=== PATIENT | female | born 1955 | race Two or more races ===

== ENCOUNTER 2021-12-14 13:36 | Emergency (ER) | payer MEDICAID ==
[~2021-12-14] VITALS: Ht 152.4 cm; Wt 72.6 kg
--- NOTE | 2021-12-14 13:36 | NUR ---
BIBS THIS 66YO FEMALE PATIENT WITH CC OF BODY WEAKNESS, BILATERAL FEET PAIN, SWELLING OF LEFT FOOT AND REDNESS ON GREAT TOE PHALANX X5 DAYS. PLACED PATIENT IN BED. VITALS CHECKED.
--- NOTE | 2021-12-14 14:43 | NUR ---
DR OTTO AT BEDSIDE
[2021-12-14] MEDS ORDERED: KETOROLAC TROMETHAMINE INJ 30 MG/ML VIAL IV ONE (15:00)
[2021-12-14] MEDS ORDERED: IV NS 0.9% 1,000 ML BAG IV ONE (15:00)
[2021-12-14] MEDS ORDERED: ONDANSETRON HCL/PF 4 MG/2 ML VIAL IVP ONE (15:00)
[2021-12-14 15:19] LABS: BASOPHILS # (AUTO) 0.1 K/uL (0.0-0.2); BASOPHILS % (AUTO) 0.7 % (0.0-2.0); HEMATOCRIT 36 % (33-45); HEMOGLOBIN 12.3 g/dL (11.5-14.8); LYMPHOCYTES # (AUTO) 2.3 K/uL (0.8-4.8); LYMPHOCYTES % (AUTO) 18.3 % (20.0-44.0); MEAN CORPUSCULAR HGB CONC 34 g/dl (31.0-36.0); MEAN CORPUSCULAR VOLUME 86 fL (82-100); MONOCYTES # (AUTO) 1.7 K/uL (0.1-1.30); MONOCYTES % (AUTO) 13.4 % (2.0-12.0); NEUTROPHILS # (AUTO) 8.5 K/uL (1.8-8.9); NEUTROPHILS % (AUTO) 67.6 % (43.0-81.0); PLATELET COUNT (AUTO) 354 K/uL (150-450); RED BLOOD CELL COUNT(AUTO) 4.22 MIL/uL (4.0-5.2); WHITE BLOOD COUNT (AUTO) 12.6 K/uL (4.3-11.0)
[2021-12-14] MEDS ORDERED: KETOROLAC TROMETHAMINE INJ 30 MG/ML VIAL ONE (15:19)
[2021-12-14] MEDS ORDERED: ONDANSETRON HCL/PF 4 MG/2 ML VIAL ONE (15:19)
[2021-12-14 15:28] LABS: CARBON DIOXIDE 29 mmol/L (21-32); CHLORIDE 103 mmol/L (98-107); CREATININE 0.8 mg/dL (0.6-1.3); GLUCOSE 136 mg/dL (74-106); POTASSIUM 2.9 mmol/L (3.5-5.1); SODIUM SERUM 143 mmol/L (136-145); UREA NITROGEN, BLOOD 9 mg/dL (7-18)
[2021-12-14 15:34] LABS: ALANINE AMINOTRANSFERASE 27 U/L (12-78); ALKALINE PHOSPHATASE 121 U/L (46-116); ASPARTATE AMINOTRANSFERASE 16 U/L (15-37); BILIRUBIN,DIRECT 0.2 mg/dL (0.0-0.2); BILIRUBIN,TOTAL 1.1 mg/dL (0.2-1.0); LIPASE 100 U/L (73-393); TOTAL PROTEIN, SERUM 7.3 g/dL (6.4-8.2)
[2021-12-14] MEDS ORDERED: POTASSIUM CHLORIDE 20 MEQ TAB.PRT.SR PO ONE ×2 (16:00→16:19)
[2021-12-14] MEDS ORDERED: AMLO-212 PO ×2 (16:04→19:40)
[2021-12-14] MEDS ORDERED: ATEN50TA PO ×2 (16:04→19:40)
[2021-12-14] MEDS ORDERED: LISI1TAB29 PO ×2 (16:04→19:40)
[2021-12-14] MEDS ORDERED: ATOR40TA PO ×2 (16:04→19:40)
[2021-12-14 18:32] LABS: BILIRUBIN,URINE NEGATIVE (NEGATIVE); COLOR,URINE YELLOW (YELLOW); LEUKOCYTE ESTERASE ,URINE NEGATIVE (NEGATIVE); NITRITE, URINE NEGATIVE (NEGATIVE); PROTEIN,URINE NEGATIVE (NEGATIVE); UGLUCOSE NEGATIVE (NEGATIVE); UROBILINOGEN,URINE 0.2 EU/dL (0.2)
[2021-12-14 18:54] LABS: BACTERIA,URINE None seen /HPF (None Seen); SQUAMOUS EPITHELIAL CELL,UR 0-2 /HPF (None Seen); WBC,URINE 0-2 /HPF (0-3)
[2021-12-14 19:13] LABS: URIC ACID 6.9 mg/dL (2.6-7.2)
[2021-12-14 19:24] VITALS: BP 162/85
[2021-12-14] MEDS ORDERED: POTA-58 PO (19:40)
[2021-12-14] MEDS ORDERED: COLC0.6C3 PO (19:40)
[2021-12-14] MEDS ORDERED: NAPR-1164 PO (19:40)
== END 2021-12-14 15:26 | disposition home or self-care (01) ==
LOC: ER 13:50
DX: E87.6 Hypokalemia (principal); M10.9 Gout, unspecified; M79.672 Pain in left foot; Z20.822 Contact with and (suspected) exposure to COVID-19; R94.31 Abnormal electrocardiogram [ECG] [EKG]; I10 Essential (primary) hypertension; E78.00 Pure hypercholesterolemia, unspecified; Z79.899 Other long term (current) drug therapy
CPT/HCPCS: 36415; 71045; 73630; 80048; 80076; 81001; 83690; 84484; 84550; 85025; 87426; 87804; 93005; 96374; 96375; 99285; C9803; J1885; J2405; J7030